=== PATIENT | male | born 1950 | race Caucasian/White ===

== ENCOUNTER 2019-10-23 21:06 | Emergency (ER) | payer OTHER, SELFPAY ==
[2019-10-23 21:19] VITALS: BP 139/76; PULSE 82; RESP 15; TEMP 36.8; O2SAT 100; BMI 28.7
--- NOTE | 2019-10-23 21:23 | ED_ITS ---
HPI - General Adult General Chief complaint: Extremity Injury, Upper Stated complaint: Fell on right arm below elbow Time Seen by Provider: 10/23/19 21:09 Source: patient Mode of arrival: Ambulatory Limitations: no limitations History of Present Illness HPI narrative: 68-year-old male here for evaluation of a laceration skin abrasions to his right elbow and forearm. States they occurred just prior to arrival when he was getting out of his hot tub. He states he slipped on the wet decking and fell. Did not hit his head. Reports no injuries except for the abrasions to his elbow. Covered with a bandage prior to arrival. Not on anticoagulation. Last tetanus shot was greater than 5 years ago Related Data Home Medications Medication Instructions Recorded Confirmed simvastatin [Zocor] 20 mg PO HS #0 02/20/17 Previous Rx's Medication Instructions Recorded metronidazole [Flagyl] 500 mg PO TID #42 tab 02/20/17 Allergies Allergy/AdvReac Type Severity Reaction Status Date / Time iodine [IODINE] Allergy Unknown Unverified 10/12/17 11:55 INGREDIENT: NDA - NO KNOWN Allergy Unknown Uncoded 10/12/17 11:55 DRUG ALLERGIES Review of Systems Constitutional Constitutional: Denies fever(s) and Denies headache(s) ENT Ears, Nose, Mouth, and Throat: Denies headache(s) Cardiovascular Cardiovascular: Denies chest pain and Denies dyspnea Respiratory Respiratory: Denies dyspnea Gastrointestinal Gastrointestinal: Denies abdominal pain, Denies nausea and Denies vomiting Musculoskeletal Musculoskeletal: Denies abnormal gait, Denies back pain, Denies myalgias and Denies arthralgias Integumentary/Breasts Comments: Laceration right elbow with abrasions to right forearm Neurologic Neurologic: Denies abnormal gait, Denies behavioral changes and Denies headache(s) Psychiatric Psychiatric: Denies behavioral changes Hematologic/Lymphatic Hematologic/Lymphatic: Denies easy bleeding and Denies easy bruising Patient History Medical History Healthy adult (Acute) Social History Smoking Status: Never smoker Exam Initial Vital Signs Initial Vital Signs: Vital Signs Temperature 98.3 F 10/23/19 21: Pulse Rate 82 10/23/19 21: Respiratory Rate 15 10/23/19 21:19 Blood Pressure 139/76 10/23/19 21:19 Pulse Oximetry 100 10/23/19 21:19 Const General: cooperative and comfortable Limitations: mental status not altered [facility] Head: atraumatic Resp Effort & Inspection: normal respiratory effort Cardio Rate: regular rate Skin Other: Patient with a irregular laceration to the right elbow. Also has 2 skin abrasions on the ulnar aspect of his right forearm distal to his elbow and proximal to his wrist. Extrem Other: Full range of motion right shoulder right elbow. Can pronate and supinate. Full range of motion of right wrist and right hand. Psych Appearance: grossly normal and well kempt Procedures Laceration Repair Laceration 1: Site: other (Right elbow) Side (If applicable): right Size (cm): 4 Description: stellate and irregular Depth: simple, single layer Local Anesthetic: lidocaine 1% and with epi Amount of anesthesia used (mL): 6 Pre-repair: irrigated extensively, deep structures intact and wound margins revised Skin layer closed with: nylon Size (cm): 4-0 Number of sutures: 12 Technique: simple, interrupted Course Orders Ordered: Discontinued Medications Bacitracin (Bacitracin) 3 applic TOP NOW ONE Stop: 10/23/19 21:24 Last Admin: 10/23/19 21:31 Dose: 3 applic Documented by: DORIS Diphtheria/Tetanus/Acell Pertussis (Adacel) 0.5 ml IM .ONCE ONE Stop: 10/23/19 21:24 Last Admin: 10/23/19 21:32 Dose: 0.5 ml Documented by: DORIS Lidocaine/Epinephrine (Xylocaine 1% W/Epi) 1 ml SUBCUT NOW ONE Stop: 10/23/19 21:24 Last Admin: 10/23/19 21:31 Dose: 1 ml Documented by: DORIS Vital Signs Vital signs: Vital Signs - 8 hr 10/23/19 21:19 Temperature 98.3 F Pulse Rate 82 Respiratory Rate 15 Blood Pressure 139/76 Pulse Oximetry 100 Medical Decision Making MDM Narrative Medical decision making narrative: No other injuries except for the skin lacerations and abrasions as described above. They were closed as described above. Had full range of motion of his elbow. I feel we could hold on radiologic studies for now. The right elbow laceration was very irregular. The edges were approximated as best as possible. He was placed in an Naldo bandage in order to remind him not to fully flex or extend his right elbow given the tension that could be placed on the stitches. He was given return precautions and follow-up instructions. He expressed understanding and agreement. Discharge Plan Departure Patient Disposition: Home Clinical Impression: Laceration, Abrasion of skin Fall Qualifiers: Encounter type: initial encounter Qualified Code(s): W19.XXXA - Unspecified fall, initial encounter Discharge Date/Time: 10/23/19 22:38 Instructions: DI for Laceration Repair, DI for Abrasion Activity Restrictions/Additional Instructions: The stitches do need to be removed in 7-10 days. After 24 hours you can shower like normal. You can keep antibiotic ointment over the areas. I recommend you use the Naldo bandage to remind you to not fully extend or flex her elbow. Contact your primary provider for follow-up. Return to the emergency department for any new or worsening symptoms Prescriptions: No Action simvastatin [Zocor] 20 MG tablet 20 mg PO HS Qty: 0 RF: 0 metronidazole [Flagyl] 500 MG tablet 500 mg PO TID Qty: 42 RF: 0 Referrals: Buddy Reid MD [Primary Care Provider] -
[2019-10-23] MEDS: LIDOCAINE 1% W/EPI 1 ML SUBCUT (21:31)
[2019-10-23] MEDS: BACITRACIN OINT 0.9 GM PCKT 3 APPLIC TOP (21:31)
[2019-10-23] MEDS: TET,DIPH,PERTUSS(ACELL),VAC/PF 0.5 ML SYRINGE IM (21:32)
== END 2019-10-23 22:38 | disposition home or self-care (01) ==
PROVIDERS: Emergency Provider Emergency Medicine; Family Provider Family Medicine; PCP Family Medicine
DX: S51.011A Laceration without foreign body of right elbow, initial encounter (principal); S50.311A Abrasion of right elbow, initial encounter; W18.30XA Fall on same level, unspecified, initial encounter; Z23 Encounter for immunization
CPT/HCPCS: 12002; 90471; 99283; 90715

== ENCOUNTER → 2020-05-14 16:42 | Outpatient (CLI) | payer OTHER, SELFPAY ==
--- NOTE | 2020-05-14 | DI.RAD.S_ITS ---
PROCEDURE: XR KNEE LT 3V INDICATIONS: left knee pain s/p fall TECHNIQUE: 3 views of the knee were acquired. COMPARISON: None. FINDINGS: Bones: No fractures or dislocations. No suspicious bony lesions. There is moderate knee joint space narrowing medially, associated with degenerative osteoarthritic change as the underlying cause. Moderately severe lateral facet patellofemoral joint osteoarthritis is seen and there also is mild subluxation of the patella laterally. Soft tissues: There is a small suprapatellar joint effusion. No suspicious soft tissue calcifications. IMPRESSION: Moderate to moderately severe knee joint osteoarthritis most pronounced at the lateral facet of the patellofemoral joint with an associated reactive knee joint effusion that is small and not associated with a loose body. Dictated by: Bill Love M.D. on 05/14/2020 at 17:45 Approved by: Bill Love M.D. on 05/14/2020 at 17:46
== END ==
PROVIDERS: Family Provider Family Medicine; PCP Family Medicine; Referring Provider Family Medicine; Visit Provider Family Medicine
DX: M25.562 Pain in left knee (principal); M17.12 Unilateral primary osteoarthritis, left knee; M25.462 Effusion, left knee
CPT/HCPCS: 73562

== ENCOUNTER → 2020-06-12 10:10 | Outpatient (CLI) | payer OTHER, SELFPAY ==
--- NOTE | 2020-06-12 | DI.RAD.S_ITS ---
PROCEDURE: XR CHEST 2V INDICATIONS: CHRONIC COUGH TECHNIQUE: 2 views of the chest were acquired. COMPARISON: [facility], CHEST 2 VIEW, 12/10/2009, 8:03. [facility], CHEST 2 VIEW, 11/25/2010, 7:53. [facility], CHEST 2 VIEW, 11/08/2011, 7:16. FINDINGS: Surgical changes and devices: None. Lungs and pleura: An incomplete inspiratory result is noted, causing a crowded appearance to the lung markings. No focal infiltrates are seen. No pneumothorax or significant pleural effusions are seen. Mediastinum: Mediastinal contours are normal. Heart size is normal. Bones and chest wall: No suspicious bony abnormalities. Age-appropriate bony degenerative changes are seen. Soft tissues appear unremarkable. IMPRESSION: Limited chest study, without an acute abnormality identified. Dictated by: Homero Sanchez M.D. on 06/12/2020 at 9:51 Approved by: Homero Sanchez M.D. on 06/12/2020 at 9:52
== END ==
PROVIDERS: Family Provider Family Medicine; PCP Family Medicine; Referring Provider Family Medicine; Visit Provider Family Medicine
DX: R05 Cough (principal)
CPT/HCPCS: 71046

== ENCOUNTER → 2020-06-19 12:33 | Outpatient (CLI) | payer OTHER, SELFPAY ==
--- NOTE | 2020-06-19 | DI.RAD.S_ITS ---
PROCEDURE: FL BARIUM SWALLOW INDICATIONS: Cough COMPARISON: [facility], CR, XR CHEST 2V, 06/12/2020, 10:16. FINDINGS: Function: There is normal esophageal peristalsis. Mild gastroesophageal reflux. There is normal transit of a calibrated barium tablet through the esophagus into the stomach. Morphology: There is a small hiatal hernia. There is no esophageal strictures, extrinsic mass effects, or diverticula. There is mild irregularity in the gastric cardia just distal to the GE junction. junction. IMPRESSION: 1. Mild gastroesophageal reflux. 2. A small hiatal hernia. 3. There is mild irregularity in the gastric cardia just beyond the gastroesophageal junction. Although the appearance could be caused by an artifact, upper endoscopy would be helpful for further evaluation. Dictated by: Clarence Sifuentes M.D. on 06/19/2020 at 13:31 Approved by: Clarence Sifuentes M.D. on 06/19/2020 at 13:35
== END ==
PROVIDERS: Family Provider Family Medicine; PCP Family Medicine; Referring Provider Family Medicine; Visit Provider Family Medicine
DX: R05 Cough (principal); K21.9 Gastro-esophageal reflux disease without esophagitis; K44.9 Diaphragmatic hernia without obstruction or gangrene
CPT/HCPCS: 74220

== ENCOUNTER 2021-02-07 18:27 | Inpatient (IN) | payer OTHER, MEDICARE, SELFPAY ==
[2021-02-07 18:45] VITALS: BP 139/88; PULSE 69; RESP 16; TEMP 36.5; O2SAT 96; BMI 29.5
--- NOTE | 2021-02-07 19:06 | DI.RAD.S_ITS ---
PROCEDURE: XR CHEST 1V INDICATIONS: fall off deck, right mid thoracic pain. TECHNIQUE: One view of the chest was acquired. COMPARISON: [facility], CR, XR CHEST 2V, 06/12/2020, 10:16. FINDINGS: Surgical changes and devices: None. Lungs and pleura: Increased opacification noted in the left lung base. Central vascular congestion. No pleural effusions or pneumothorax. Mediastinum: Mediastinal contours appear normal. Heart size is normal. Bones and chest wall: Possible 1.5 centimeter ossified intra-articular loose body noted in the right shoulder. No suspicious bony lesions. Overlying soft tissues appear unremarkable. IMPRESSION: 1. Increased opacification left lung base which could represent atelectasis, aspiration or pneumonia. 2. Central vascular congestion which could be due to fluid overload or CHF. Dictated by: Kandis Sierra MD, PhD on 02/07/2021 at 19:40 Approved by: Kandis Sierra MD, PhD on 02/07/2021 at 19:42
--- NOTE | 2021-02-07 19:06 | ED_ITS ---
HPI - Fall General Chief Complaint: Fall Stated Complaint: Fell Off Deck,Rt Ribs,Rt Arm,Head Injury Time Seen by Provider: 02/07/21 18:59 Source: patient Mode of arrival: Ambulatory Limitations: no limitations History of Present Illness HPI Narrative: This is a 70-year-old male who states he fell off a deck. James capellan was trying to pry a piece of wooden planking off his deck when it broke loose and there was something stopping him from falling off the deck and he fell about 4 ft onto the right side of his head, chest and arm. Patient states he has pain in his right back in the area of his ribs in the midthoracic region which he states feels similar to when he broke his ribs in the past. Patient states he did hit his head. He is not anticoagulated. He does not take a daily aspirin or other thinners. He denies any loss of consciousness. He states he has a mild headache, no vision changes, no nausea or vomiting. No neck pain. No lower back pain. Patient has some discomfort over his arm and some tingling over an area of superficial laceration. Patient states painful to take a deep breath. He denies any anterior chest pain. He denies any nausea or vomiting. He denies any bowel or bladder incontinence. He denies any tingling or numbness in his distal extremities. Patient states he takes Zocor daily. He has had a transverse process fracture and rib fracture remotely. He states these were treated conservatively. Patient denies any other surgeries besides appendectomy. He states he is allergic to IV contrast and his reaction was an episode of vomiting immediately after contrast was given. No tobacco, occasional alcohol. Patient denies any alcohol today. No illicit. Patient's primary care is Dr. Reid. Patient tetanus is up to date. Related Data Home Medications Medication Instructions Recorded Confirmed simvastatin 20 mg tablet (Zocor) 20 mg PO HS #0 02/20/17 Previous Rx's Medication Instructions Recorded metronidazole 500 mg tablet 500 mg PO TID #42 tab 02/20/17 (Flagyl) Allergies Allergy/AdvReac Type Severity Reaction Status Date / Time iodine [IODINE] Allergy Intermediate Vomiting Verified 02/07/21 18:52 Review of Systems Review of Systems ROS Unobtainable: All systems reviewed & are unremarkable except as noted in HPI and below Patient History Medical History (Updated 02/07/21 @ 20:15 by Amanda Keller DO) Healthy adult Social History household members: spouse Smoking Status: Former smoker Smoking Status: Never smoker alcohol intake frequency: 0-2 drinks per day Alcohol type: beer Substance Use Type: does not use Exam Narrative Exam Narrative: GEN: Patient appears in moderate distress. HEAD: No evidence of trauma for the small area of ecchymosis over the right forehead, no raccoon/Carrasco sign. NECK: Nontender, painless range of motion, trachea midline Negative Nexus criteria, there is no mid line tenderness, distracting injury, altered mental status, neuro deficit, recent EtOH. EYES: PERRLA, EOMI ENT: External inspection normal, trachea is midline, TM's are normal no hemotypanum, Nares are clear, no septal hematoma, no dental or oral injury, airway is normal and with normal occlusion, No bony tenderness RESP: Chest is nontender and has symmetric movement, no ecchymosis, breath sounds are normal no crackles, wheezes or rales CVS: Heart sounds are normal, no murmur noted, No JVD. ABG/GI: Nontender, soft, normal bowel sounds, no distention, no organomegaly, pelvic rock is negative NEURO: Oriented AOx3, neuro is grossly intact, sensation and motor is normal all 4 extremities moving, cranial nerves II through XII are intact, GCS is 15 PSYCH: Normal mood and affect SKIN: Intact, warm and dry, no crepitus and without decubitus BACK: No CVA tenderness, no vertebral tenderness, patient does have tenderness over the midthoracic region at T9/L1 region. No flail chest. No ecchymosis. No step-off's, no crepitus EXT: Atraumatic except for a 5 cm superficial laceration over the right forearm, hips are nontender, no pedal edema, normal color and temperature, normal range of motion of extremities with normal tendon exam, 2+ pulses in all four extremities Initial Vital Signs Initial Vital Signs: Vital Signs Temperature 97.7 F 02/07/21 18:45 Pulse Rate 69 02/07/21 18:45 Respiratory Rate 16 02/07/21 18:45 Blood Pressure 139/88 02/07/21 18:45 Pulse Oximetry 96 02/07/21 18:45 Scores GCS [place] coma scale eye opening: Spontaneous [place] coma scale verbal response: Orientated [place] coma scale motor response: Obey commands [place] coma scale total score: 15 Course Orders Ordered: ED Orders 02/07/21 20:30 COVID19 - ADMIT ([employer] swab/PCR) Stat 02/07/21 21:04 Partial Thromboplastin Time Stat Prothrombin Time INR Stat 02/07/21 21:21 CT cervical spine wo con Stat CT head/brain wo con Stat 02/07/21 21:24 Education, smoking cessation ONGOING 02/08/21 04:43 Complete Blood Count AUTO DIFF DAILY 02/08/21 06:30 XR chest 1V DAILY Acetaminophen (Acetaminophen 325 Mg Tablet) 650 mg PO Q6HR PRN PRN Reason: Fever/Mild Pain (1-3) Hydrocodone Bitart/Acetaminophen (Hydrocodone/Acet 5/325 Tablet) 2 tab PO Q4HR PRN PRN Reason: Pain, Severe (7-10) Last Admin: 02/08/21 00:48 Dose: 2 tab Documented by: JAILENE Enoxaparin Sodium (Enoxaparin 40 Mg/0.4 Ml Syringe) 40 mg SUBCUT DAILY MESFIN Sodium Chloride (Normal Saline 0.9%) 1,000 mls @ 150 mls/hr IV CONT MESFIN Last Admin: 02/07/21 20:32 Dose: 150 mls/hr Documented by: DORENE Dextrose/Sodium Chloride (Dextrose 5%-0.45% Ns) 1,000 mls @ 100 mls/hr IV CONT MESFIN Last Admin: 02/08/21 00:51 Dose: 100 mls/hr Documented by: JAILENE Naloxone HCl (Naloxone 0.4 Mg/Ml Vial) 0.2 mg IV Q2MIN PRN PRN Reason: Opiate Reversal Ondansetron HCl (Ondansetron 4 Mg/2 Ml Inj) 4 mg IV Q6HR PRN PRN Reason: Nausea And Vomiting Last Admin: 02/08/21 02:07 Dose: 4 mg Documented by: Admin: 02/07/21 21:51 Dose: 4 mg Documented by: DORENE Discontinued Medications Morphine Sulfate (Morphine 4 Mg/Ml Inj) 4 mg IV NOW ONE Stop: 02/07/21 19:07 Last Admin: 02/07/21 20:06 Dose: 4 mg Documented by: DORENE Morphine Sulfate (Morphine 4 Mg/Ml Inj) 4 mg IV NOW ONE Stop: 02/07/21 21:36 Last Admin: 02/07/21 21:39 Dose: 4 mg Documented by: DORENE Consultations Consultation #1: Dr. Tadeo, patient is noticed to have rib fractures 3 t hrough 11 with a trace right hemothorax. Discussed with Dr. Tadeo who requests head CT and C-spine. If these are negative she accepts for admission and will put orders in. Dr. Tadeo defers any call back if negative CT imaging. A mild leukocytosis at 14 and AST ALT at 266 and ALT at 221 were reviewed. Patient is non-tender on abdominal exam. Vital Signs Vital signs: Vital Signs - 8 hr 02/07/21 21:28 Pulse Rate 73 Respiratory Rate 16 Blood Pressure 138/83 Pulse Oximetry 95 MDM - Fall Lab Data Result diagrams: 02/07/21 20:05 02/07/21 20:05 Labs: Lab Results 02/07/21 02/07/21 02/07/21 Range/Units 20:05 20:05 20:05 WBC 14.3 H (4.5-11.0) X10^3/uL RBC 4.92 (4.5-5.9) X10^6/uL Hgb 15.9 (13.5-17.5) g/dL Hct 46.6 (41-53) % MCV 94.7 (80-100) fL MCH 32.3 (26-34) PG MCHC 34.2 (30-36) % RDW 13.4 (11.6-14.8) % Plt Count 202 (150-400) X10^3/uL Neut % (Auto) 83.2 H (50-75) % Lymph % (Auto) 7.3 L (25-40) % Charlton % (Auto) 8.2 (3-14) % Eos % (Auto) 0.8 L (2-4) % Baso % (Auto) 0.5 (0-2) % Neut # (Auto) 77295 H (8393-6843) /uL Lymph # (Auto) 1000 L (3432-6789) /uL Charlton # (Auto) 1200 H (0-900) /uL Eos # (Auto) 100 (0-450) /uL Baso # (Auto) 100 (0-100) /uL PT (10.1-12.7) SECONDS INR (0.9-1.3) APTT (26.4-36.2) SECONDS Sodium 140 (137-145) mmol/L Potassium 3.8 (3.4-5.1) mmol/L Chloride 106 (98-107) mmol/L Carbon Dioxide 27 (22-32) mmol/L BUN 21 H (9-20) mg/dL Creatinine 1.01 (0.66-1.25) mg/dL Estimated GFR > 60.0 (>60) mL/min BUN/Creatinine Ratio 20.8 (6-22) Glucose 136 H (80-110) mg/dL Calcium 9.3 (8.4-10.2) mg/dL Total Bilirubin 0.5 (0.2-1.3) mg/dL AST 266 H (17-59) IU/L ALT 221 H (<50) IU/L Alkaline Phosphatase 83 (38-126) U/L Total Protein 7.4 (6.3-8.2) g/dL Albumin 4.5 (3.5-5.0) g/dL Globulin 2.9 (1.7-4.1) g/dL Albumin/Globulin Ratio 1.6 (1.0-2.8) Lipase 133 (23-300) U/L Ethyl Alcohol < 10 ( - 10) mg/dL SARS-CoV-2 (PCR) (Negative) Blood Type B Negative Antibody Screen Negative 02/07/21 02/07/21 Range/Units 20:30 21:04 WBC (4.5-11.0) X10^3/uL RBC (4.5-5.9) X10^6/uL Hgb (13.5-17.5) g/dL Hct (41-53) % MCV (80-100) fL MCH (26-34) PG MCHC (30-36) % RDW (11.6-14.8) % Plt Count (150-400) X10^3/uL Neut % (Auto) (50-75) % Lymph % (Auto) (25-40) % Charlton % (Auto) (3-14) % Eos % (Auto) (2-4) % Baso % (Auto) (0-2) % Neut # (Auto) (5254-3792) /uL Lymph # (Auto) (6952-4465) /uL Charlton # (Auto) (0-900) /uL Eos # (Auto) (0-450) /uL Baso # (Auto) (0-100) /uL PT 11.7 (10.1-12.7) SECONDS INR 1.0 (0.9-1.3) APTT 29 (26.4-36.2) SECONDS Sodium (137-145) mmol/L Potassium (3.4-5.1) mmol/L Chloride (98-107) mmol/L Carbon Dioxide (22-32) mmol/L BUN (9-20) mg/dL Creatinine (0.66-1.25) mg/dL Estimated GFR (>60) mL/min BUN/Creatinine Ratio (6-22) Glucose (80-110) mg/dL Calcium (8.4-10.2) mg/dL Total Bilirubin (0.2-1.3) mg/dL AST (17-59) IU/L ALT (<50) IU/L Alkaline Phosphatase (38-126) U/L Total Protein (6.3-8.2) g/dL Albumin (3.5-5.0) g/dL Globulin (1.7-4.1) g/dL Albumin/Globulin Ratio (1.0-2.8) Lipase (23-300) U/L Ethyl Alcohol ( - 10) mg/dL SARS-CoV-2 (PCR) Negative (Negative) Blood Type Antibody Screen Imaging Data Tspine CT: Radiologist's Impression: [address] [id number] Scan ReportSigned Patient: Kevan Armstrong LMR#: [id number]: 3Acct:[id number]/Sex: 70 / MDate of Service: 02/07/21Loc: EDAccession Number: [id number] Procedure: CT thoracic spine wo con Ordering Provider: Amanda Keller D.O. PROCEDURE: CT THORACIC SPINE WO CON INDICATIONS: fall, right posterior rib pain along. TECHNIQUE: Noncontrast 3 mm thick sections acquired through the region of interest in the thoracic spine. Sagittal and coronal reformats were then constructed. For radiation dose reduction, the following was used: automated exposure control. COMPARISON: [facility], CR, XR CHEST 1V, 02/07/2021, 19:22. FINDINGS: Image quality: Excellent. Bones: Right posterior 3rd through 11th rib fractures. There is normal overall bony alignment. No acute vertebral body compression fractures. No suspicious scle rotic or lytic bony lesions. Central spinal canal is of normal overall caliber. Mild mid and lower thoracic spine degenerative disc changes. Schmorl's node noted in the superior endplate of the T2 vertebral body. Soft tissues: No paravertebral masses or hematomas. Atelectasis noted in the dependent portion lungs bilaterally. Trace right-sided hemothorax. No pneumothorax. Small hiatal hernia. IMPRESSION: 1. Right 3rd through 11th rib fractures. 2. Trace right-sided hemothorax. No pneumothorax. Dictated by: Kandis Sierra MD, PhD on 02/07/2021 at 19:43 Approved by: Kandis Sierra MD, PhD on 02/07/2021 at 19:[address]: Radiologist's Impression: [address] [id number] Scan ReportSigned Patient: Kevan Armstrong LMR#: [id number]: [id number]:[id number]/Sex: 70 / MDate of Service: 02/07/21Loc: EDAccession Number: [id number] Procedure: CT lumbar spine wo con Ordering Provider: Amanda Keller D.O. PROCEDURE: CT LUMBAR SPINE WO CON INDICATIONS: right posterior rib/back pain TECHNIQUE: Noncontrast 3 mm thick sections acquired from the T12 level to the sacrum. Sagittal and coronal reformats were constructed. For radiation dose reduction, the following was used: automated exposure control. COMPARISON: None. FINDINGS: Image quality: Excellent. Bones: There is normal bony alignment. No acute vertebral body compression fractures. Posterior right 11th rib fracture. No suspicious lytic or blastic bony lesions. No pars defects. Spine degenerative disc disease and facet arthropathy. Soft tissues: No retroperitoneal masses or hematomas. Visualized aorta is normal in caliber. IMPRESSION: 1. No lumbar spine fracture. No lumbar spine acute osseous lesion. If symptoms and/or clinical suspicion for pathology persists, evaluation with MRI should be considered for further assessment. 2. Right 11th rib fracture. Dictated by: Kandis Sierra MD, PhD on 02/07/2021 at 19:59 Approved by: Kandis Sierra MD, PhD on 02/07/2021 at 20:02 CT scan - head: Radiologist's Impression: No acute intracranial abnormalities. Diffuse age-related volume loss and nonspecific deep white matter changes likely repres enting chronic microvascular ischemic changes. CT - cervical spine: Radiologist's Impression: Acute right posterior 3rd 4th rib fractures. Diffuse spondylosis with multilevel facet on come COVID vertebral hypertrophy and associated neuroforaminal narrowing. Slight degenerative anterolisthesis of C5 on C6 ECG Data Interpretation: Sinus rhythm with sinus arrhythmia rate of 70 5p are 168 QRS of 94 and QTC of 410. No acute ST elevation or depression. MDM Narrative Medical decision making narrative: This is a 70-year-old male who comes to the emergency department after 4 ft fall off of his deck. Patient was removing a deck planking when as he was using a crowbar they gave way and he fell forward onto the ground on his right side. Patient does have a small bruise on his right forehead. Patient has right thoracic tenderness posteriorly. He is nontender over the spine itself but his pain is quite close so CT imaging of thoracic and lumbar spine was ordered. Patient has been hemodynamically stable. He was found have 3 through 11 rib fractures with trace hemothorax. Patient also had chest x-ray included. Patient's labs show a leukocytosis of 14 and a bump in his AST/ALT. These were discussed with Dr. Tadeo who does request a head CT and C-spine which are both negative and patient was accepted for admission. Patient has been tolerating pain with morphine and Zofran as needed. His only current medical has tree is that he takes Zocor daily. He has an allergy to iodine which causes vomiting. And is not on any anticoagulants including aspirin or other antiplatelet medications. Discharge Plan Departure Patient Disposition: Admitted As Inpatient Clinical Impression: Fracture of ribs, multiple, closed, Hemothorax on right Admit Date/Time: 02/07/21 22:45 Admit Provider: Dedra Tadeo
--- NOTE | 2021-02-07 19:13 | DI.CT.S_ITS ---
PROCEDURE: CT LUMBAR SPINE WO CON INDICATIONS: right posterior rib/back pain TECHNIQUE: Noncontrast 3 mm thick sections acquired from the T12 level to the sacrum. Sagittal and coronal reformats were constructed. For radiation dose reduction, the following was used: automated exposure control. COMPARISON: None. FINDINGS: Image quality: Excellent. Bones: There is normal bony alignment. No acute vertebral body compression fractures. Posterior right 11th rib fracture. No suspicious lytic or blastic bony lesions. No pars defects. Spine degenerative disc disease and facet arthropathy. Soft tissues: No retroperitoneal masses or hematomas. Visualized aorta is normal in caliber. IMPRESSION: 1. No lumbar spine fracture. No lumbar spine acute osseous lesion. If symptoms and/or clinical suspicion for pathology persists, evaluation with MRI should be considered for further assessment. 2. Right 11th rib fracture. Dictated by: Kandis Sierra MD, PhD on 02/07/2021 at 19:59 Approved by: Kandis Sierra MD, PhD on 02/07/2021 at 20:02
--- NOTE | 2021-02-07 19:13 | DI.CT.S_ITS ---
PROCEDURE: CT THORACIC SPINE WO CON INDICATIONS: fall, right posterior rib pain along. TECHNIQUE: Noncontrast 3 mm thick sections acquired through the region of interest in the thoracic spine. Sagittal and coronal reformats were then constructed. For radiation dose reduction, the following was used: automated exposure control. COMPARISON: [facility], CR, XR CHEST 1V, 02/07/2021, 19:22. FINDINGS: Image quality: Excellent. Bones: Right posterior 3rd through 11th rib fractures. There is normal overall bony alignment. No acute vertebral body compression fractures. No suspicious sclerotic or lytic bony lesions. Central spinal canal is of normal overall caliber. Mild mid and lower thoracic spine degenerative disc changes. Schmorl's node noted in the superior endplate of the T2 vertebral body. Soft tissues: No paravertebral masses or hematomas. Atelectasis noted in the dependent portion lungs bilaterally. Trace right-sided hemothorax. No pneumothorax. Small hiatal hernia. IMPRESSION: 1. Right 3rd through 11th rib fractures. 2. Trace right-sided hemothorax. No pneumothorax. Dictated by: Kandis Sierra MD, PhD on 02/07/2021 at 19:43 Approved by: Kandis Sierra MD, PhD on 02/07/2021 at 19:47
[2021-02-07] MEDS: MORPHINE 4 MG/ML INJ IV ×2 (20:06→21:39)
[2021-02-07 20:10] VITALS: BP 122/79; PULSE 73; RESP 14; O2SAT 97
[2021-02-07 20:30] VITALS: BP 110/78; PULSE 74; RESP 18; O2SAT 94
[2021-02-07] MEDS: SODIUM CHLORIDE 0.9% 1,000 ML 150 ML IV (20:32)
[2021-02-07 20:45] LABS: Add Manual Diff / Slide Review NO; Basophils Absolute Auto 100 /uL (0-100); Basophils Percent Auto 0.5 % (0-2); Eosinophils Absolute Auto 100 /uL (0-450); Eosinophils Percent Auto 0.8 % (2-4); Hematocrit 46.6 % (41-53); Hemoglobin 15.9 g/dL (13.5-17.5); Lymphocytes Absolute Auto 1000 /uL (1100-4500); Lymphocytes Percent Auto 7.3 % (25-40); Mean Corpuscular HGB Conc 34.2 % (30-36); Mean Corpuscular Hemoglobin 32.3 PG (26-34); Mean Corpuscular Volume 94.7 fL (80-100); Monocytes Absolute Auto 1200 /uL (0-900); Monocytes Percent Auto 8.2 % (3-14); Neutrophils Absolute Auto 11900 /uL (1500-7000); Neutrophils Percent Auto 83.2 % (50-75); Platelet Count 202 X10^3/uL (150-400); Red Blood Cell Count 4.92 X10^6/uL (4.5-5.9); Red Cell Distribution Width 13.4 % (11.6-14.8); White Blood Cell Count 14.3 X10^3/uL (4.5-11.0)
[2021-02-07 20:50] LABS: Alanine Aminotransferase 221 IU/L (<50); Albumin 4.5 g/dL (3.5-5.0); Albumin Globulin Ratio 1.6 (1.0-2.8); Alkaline Phosphatase 83 U/L (38-126); Aspartate Aminotransferase 266 IU/L (17-59); BUN Creatinine Ratio 20.8 (6-22); Bilirubin Total 0.5 mg/dL (0.2-1.3); Blood Urea Nitrogen 21 mg/dL (9-20); Calcium 9.3 mg/dL (8.4-10.2); Carbon Dioxide 27 mmol/L (22-32); Chloride 106 mmol/L (98-107); Estimated Glomerular Filt Rate > 60.0 mL/min (>60); Ethanol (ETOH) < 10 mg/dL; Globulin 2.9 g/dL (1.7-4.1); Glucose 136 mg/dL (80-110); HEMOLYSIS 48 (0-50); Lipase 133 U/L (23-300); Potassium 3.8 mmol/L (3.4-5.1); Sodium 140 mmol/L (137-145); Total Protein 7.4 g/dL (6.3-8.2)
--- NOTE | 2021-02-07 21:21 | DI.CT.S_ITS ---
PROCEDURE: CT HEAD/BRAIN WO CON INDICATIONS: fall, did hit forehead. TECHNIQUE: Noncontrast 4.5 mm thick angled axial sections acquired from the foramen magnum to the vertex, with coronal and sagittal reformats. For radiation dose reduction, the following was used: automated exposure control, adjustment of mA and/or kV according to patient size. COMPARISON: None. FINDINGS: Image quality: Excellent. CSF spaces: Basal cisterns are patent. No extra-axial fluid collections. The ventricles are symmetric in size and shape. Brain: No intracranial bleeds or masses. There is cerebral volume loss for age, with resultant ventricular and sulcal prominence. There are mild periventricular and deep white matter chronic small vessel ischemic changes. There is intracranial internal carotid artery atherosclerosis. Skull and face: Calvarium and visualized facial bones appear intact, without suspicious lesions. Sinuses: Visualized sinuses and mastoids are clear. IMPRESSION: 1. No CT evidence of acute intracranial process. 2. Age-appropriate exam. 3. No fractures. 4. Concordant with preliminary report. Dictated by: Marielena Stern M.D. on 02/08/2021 at 7:14 Approved by: Marielena Stern M.D. on 02/08/2021 at 7:16
--- NOTE | 2021-02-07 21:21 | DI.CT.S_ITS ---
PROCEDURE: CT CERVICAL SPINE WO CON INDICATIONS: fall, did hit forehead. TECHNIQUE: Noncontrast 3 mm thick sections acquired from the skull base to the T4 level. Sagittal and coronal reformats were then constructed. For radiation dose reduction, the following was used: automated exposure control, adjustment of mA and/or kV according to patient size. COMPARISON: None. FINDINGS: Image quality: Excellent. Bones: No cervical spine fractures or dislocations. Degenerative change at the atlantodental interval. Facet hypertrophy bilaterally from C3 through C6. Severe facet arthropathy at C7-T1. Disc height loss and endplate spurring at C6-7. Degenerative disc and Schmorl's node formation incidentally seen at the T1-2 level. Visualized superior ribs are intact. Soft tissues: Prevertebral soft tissues are normal in thickness. Minimally displaced right posterior 3rd and 4th rib fractures. No paravertebral hematomas. No apical pneumothoraces. IMPRESSION: 1. No acute cervical spine fracture. 2. Acute 3rd and 4th posterior right rib fractures. 3. Degenerative changes in the cervical spine as described. 4. Concordant with preliminary report. Dictated by: Marielena Stern M.D. on 02/08/2021 at 7:16 Approved by: Marielena Stern M.D. on 02/08/2021 at 7:20
[2021-02-07 21:25] LABS: COVID19 - ADMIT (NP swab/PCR) Negative (Negative)
[2021-02-07 21:27] LABS: Prothrombin Time 11.7 SECONDS (10.1-12.7)
[2021-02-07 21:28] VITALS: BP 138/83; PULSE 73; RESP 16; O2SAT 95
[2021-02-07 21:30] LABS: PTT Partial Thromboplastin Tim 29 SECONDS (26.4-36.2)
[2021-02-07] MEDS: ONDANSETRON 4 MG/2 ML INJ IV (21:51)
[2021-02-07 23:32] VITALS: BMI 29.5
[2021-02-08] VITALS (12 sets, daily range): BP systolic 106–140; BP diastolic 58–92; PULSE 63–84; RESP 14–20; TEMP 36.2–36.8; O2SAT 91–97
[2021-02-08] MEDS: HYDROCODONE/ACET 5/325 TABLET 2 TAB PO ×5 (00:48→21:57)
[2021-02-08] MEDS: DEXTROSE 5%-0.45% NS 1,000 ML 100 ML IV (00:51)
[2021-02-08] MEDS: ONDANSETRON 4 MG/2 ML INJ IV (02:07)
[2021-02-08 05:15] LABS: Add Manual Diff / Slide Review NO; Basophils Absolute Auto 0 /uL (0-100); Basophils Percent Auto 0.2 % (0-2); Eosinophils Absolute Auto 0 /uL (0-450); Hematocrit 41.4 % (41-53); Hemoglobin 14.3 g/dL (13.5-17.5); Lymphocytes Absolute Auto 500 /uL (1100-4500); Mean Corpuscular HGB Conc 34.7 % (30-36); Mean Corpuscular Hemoglobin 32.8 PG (26-34); Mean Corpuscular Volume 94.5 fL (80-100); Monocytes Absolute Auto 900 /uL (0-900); Monocytes Percent Auto 8.5 % (3-14); Neutrophils Absolute Auto 8800 /uL (1500-7000); Neutrophils Percent Auto 86.3 % (50-75); Platelet Count 184 X10^3/uL (150-400); Red Blood Cell Count 4.38 X10^6/uL (4.5-5.9); Red Cell Distribution Width 13.1 % (11.6-14.8); White Blood Cell Count 10.2 X10^3/uL (4.5-11.0)
--- NOTE | 2021-02-08 06:30 | DI.RAD.S_ITS ---
PROCEDURE: XR CHEST 1V INDICATIONS: ptx TECHNIQUE: One view of the chest was acquired. COMPARISON: [facility], CT, CT THORACIC SPINE WO CON, 02/07/2021, 19:24. [facility], CR, XR CHEST 1V, 02/07/2021, 19:22. FINDINGS: Surgical changes and devices: None. Lungs and pleura: No pneumothorax is seen. No significant pleural bone. Low lung volumes are noted. This causes a crowded appearance to the lung markings and limits evaluation. Mediastinum: Mediastinal contours appear normal. Heart size is normal. Bones and chest wall: No suspicious bony lesions. Age-appropriate bony degenerative changes are seen. The patient's known right posterior rib fractures are not well seen on the plain. Overlying soft tissues appear unremarkable. IMPRESSION: No pneumothorax is seen. The rib fractures that are well seen on CT are not well seen by plain film. Dictated by: Homero Sanchez M.D. on 02/08/2021 at 8:18 Approved by: Homero Sanchez M.D. on 02/08/2021 at 8:19
[2021-02-08] MEDS: ENOXAPARIN 40 MG/0.4 ML SYRINGE SUBCUT (08:32)
--- NOTE | 2021-02-08 10:25 | PC.NURSE ---
Addendum entered by Addie Burton R.N. 02/08/21 12:50: Patient medicated earlier with 2 vicodin. This has been helpful for patients pain control. He is going to have physical therapy and then may go home later this afternoon. Original Note: Patient is doing well this morning. He is lying down supine and is comfortable after given 2 Vicodin this morning at 0630. He has a skin tear to his r.forearm that he obtained when he fell down last evening. No stitches or steri strips, area is wrapped with kurlex and intact with medium sized dried blood stain. No bruising noted to r.side of torso from where rib fx are. He has a supportive and is talking to the now.
--- NOTE | 2021-02-08 10:50 | CM.DANOTE ---
Addendum entered by Amy Puentes LPN 02/08/21 14:34: Dr. Tadeo was just here and has said that pt can go after he is cleared by RT and PT. RT is seeing pt now but at this time looks like no supplemental oxygen is needed. PT Graciela is recommending HH. Met with pt and his in followup. Agency choice list discussed and with use of Medicare A for the HH service. Decision: [facility]. Paoal is given the referral and expects to have pt seen before by Sunday 02/[address] Tadeo did not sign a Face/Face document. Have called her now and explained need. She agrees to be here in 10 minutes and will complete the needed document. HH RN/PT/OT are ordered. [facility] brochure is given to pt's . Original Note: Discharge Planning/Care Management DCP: assessment: case received, EMR reviewed and met with pt and his Kristine. Introduced self and role. Pt is a 70 year old male who admitted to care of [facility]: Mckayla Tadeo last night PCP: Jeremi Reid Admission status: INPT: confirmed by [facility] CORTEZ Avilez Payer: Bogdan and Medicare A (not noted on face sheet: pt confirms same and family will bring his card in today. Have alerted [facility] and will fax copy of card to them upon receipt. Will also place to [facility] folder for scan to EMR) Pt has admitted after a fall off deck while working to remove a deck plank. Hit head, fractured multiple ribs 3-11 and trace right sided hemothorax. Pt's PCP is here doing rounds and stopped in to see pt as a courtesy visit. Will await Dr. Tadeo to see about POC going forward. DCP team will follow for d/c issues and options as these become clearer. Advanced directive, confirm from FAMILY Start: 02/08/21 01:01 Freq: Q24H Status: Active Protocol: Document 02/08/21 01:01 ROBYN (Rec: 02/08/21 03:36 ROBNY [id number]) Advance Directive, confirm on record Time 01:00 Person contacted Copy received No CM Discharge Assessment Start: 02/08/21 10:49 Freq: Status: Active Protocol: Document 02/08/21 10:49 ITV (Rec: 02/08/21 10:50 ITV [id number]) Discharge Planning Assessment Advance Directives? Yes Advance Directives on File Yes History Provided By Patient,Family Member,Medical Record Prior Living Arrangements House Household Members spouse Comment Kristine Independent with ADL's Yes Is patient alert and oriented? Yes
--- NOTE | 2021-02-08 12:40 | PM.HP.1 ---
History of Present Illness History of Present Illness Date Patient Seen: 02/08/21 Date of Onset of Symptoms: 02/07/21 Chief complaint: Fell Off Deck,Rt Ribs,Rt Arm,Head Injury Narrative: fall from deck. Right trace hemothorax on CT Right rib fractures (3-11) [facility] Right arm laceration Was working on his deck prying a board loose with crowbar. Fell backwards when board gave way. Doesn't recall all details of event. C/O pain with deep breath and right sided chest wall pain. Pain in right arm. ED workup shows right ribs 3-11 fracture with trace hemothorax. No pnuemothorax. CXR today is stable as is Hct. No signs of concussive symptoms. Head, Neck and Thorax with no acute injury. Patient History Medical History Healthy adult Family & Social History Social History: household members spouse Prior Living Arrangements House Safety & Behavioral: Feels Safe in Current Yes Environment Been Physically Hurt or No Threatened By a Person Suicidal Ideation Description None Tobacco & Substance use: Smoking Status Former smoker alcohol intake frequency 0-2 drinks per day Substance Use Type does not use Meds Home Medications and Allergies Home Medications Medication Instructions Recorded Confirmed Type metronidazole 500 mg tablet 500 mg PO TID #42 tab 02/20/17 Rx (Flagyl) simvastatin 20 mg tablet (Zocor) 20 mg PO HS #0 02/20/17 History acetaminophen 325 mg tablet 650 mg PO Q6HR PRN #30 tab 02/08/21 Rx hydrocodone 5 mg-acetaminophen 325 2 tab PO Q4HR PRN #40 tab 02/08/21 Rx mg tablet Allergies Allergy/AdvReac Type Severity Reaction Status Date / Time iodine [IODINE] Allergy Intermediate Vomiting Verified 02/07/21 18:52 Exam Vital Signs (past 8 hours): - 02/08/21 05:00 02/08/21 07:12 02/08/21 11:36 Temperature 97.2 F L 97.9 F Pulse Rate 70 66 Respiratory Rate 18 16 Blood Pressure 117/74 106/73 Pulse Oximetry 97 97 97 Oxygen Delivery Method Room Air Oxygen Flow Rate 0 Const General: cooperative and healthy appearing Nutritional Appearance: average body habitus Orientation: alert and oriented x3 HENMT Head: normocephalic and abrasion (right forehead, no hematoma) Eyes Conjunctivae: conjunctivae normal Sclera: sclerae normal Neck Neck: trachea midline Chest Chest: normal inspection of the chest Resp Effort & Inspection: normal respiratory effort and able to speak in complete sentences Cardio Rate: regular rate Rhythm: regular rhythm GI Inspection: normal to inspection Palpation: soft Skin General: no rashes or lesions noted Other: right arm wound dressing is dry Neuro General: patient alert and patient oriented x3 Extrem General: normal to inspection and full ROM Psych Appearance: grossly normal Attitude: cooperative Judgment: judgment good Objective Labs Result Diagrams: 02/08/21 04:43 02/07/21 20:05 Labs: Laboratory Results - last 24 hr 02/07/21 02/07/21 02/07/21 20:05 20:05 20:05 WBC 14.3 H RBC 4.92 Hgb 15.9 Hct 46.6 MCV 94.7 MCH 32.3 MCHC 34.2 RDW 13.4 Plt Count 202 Neut % (Auto) 83.2 H Lymph % (Auto) 7.3 L [place] % (Auto) 8.2 Eos % (Auto) 0.8 L Baso % (Auto) 0.5 Neut # (Auto) 25317 H Lymph # (Auto) 1000 L [place] # (Auto) 1200 H Eos # (Auto) 100 Baso # (Auto) 100 PT INR APTT Sodium 140 Potassium 3.8 Chloride 106 Carbon Dioxide 27 BUN 21 H Creatinine 1.01 Estimated GFR > 60.0 BUN/Creatinine Ratio 20.8 Glucose 136 H Calcium 9.3 Total Bilirubin 0.5 AST 266 H ALT 221 H Alkaline Phosphatase 83 Total Protein 7.4 Albumin 4.5 Globulin 2.9 Albumin/Globulin Ratio 1.6 Lipase 133 Ethyl Alcohol < 10 SARS-CoV-2 (PCR) Blood Type B Negative Antibody Screen Negative 02/07/21 02/07/21 02/08/21 20:30 21:04 04:43 WBC 10.2 RBC 4.38 L Hgb 14.3 Hct 41.4 MCV 94.5 MCH 32.8 MCHC 34.7 RDW 13.1 Plt Count 184 Neut % (Auto) 86.3 H Lymph % (Auto) 5.0 L [place] % (Auto) 8.5 Eos % (Auto) 0.0 L Baso % (Auto) 0.2 Neut # (Auto) 8800 H Lymph # (Auto) 500 L [place] # (Auto) 900 Eos # (Auto) 0 Baso # (Auto) 0 PT 11.7 INR 1.0 APTT 29 Sodium Potassium Chloride Carbon Dioxide BUN Creatinine Estimated GFR BUN/Creatinine Ratio Glucose Calcium Total Bilirubin AST ALT Alkaline Phosphatase Total Protein Albumin Globulin Albumin/Globulin Ratio Lipase Ethyl Alcohol SARS-CoV-2 (PCR) Negative Blood Type Antibody Screen Assessment & Plan Assessment & Plan narrative: Fall from deck with right arm laceration, right rib fractures 3-11 and trace hemothorax. Plan: RT and PT to evaluate and treat. Once done, patient can go home with no heavy lifting or straining for 4 weeks. Hydrocodone at night and tylenol during the day COVID-19 COVID-19 status: Negative Time Spent With Patient Time with patient: Greater than 35 minutes Quality VTE Deep Vein Thrombosis/Pulmonary Embolism Present on Admission: No
--- NOTE | 2021-02-08 14:21 | PT.IIE ---
Medical History (Last Reviewed 02/08/21 @ 12:42 by Dedra Tadeo MD) Healthy adult Physical Therapy Inpatient Evaluation/Re-Eval M1 PT/OT-IP Prior Functional Status Start: 02/08/21 13:25 Freq: NEEDED Status: Active Protocol: Document 02/08/21 14:21 AW (Rec: 02/08/21 15:00 AW [id number]) Medical Review Prior Functional Status Medical History Reviewed Yes Communication WNL. Pt is an effective verbal communicator. Mobility and Gait WNL. Pt is active and independent. He reports hiking spring [place]. Of note, he has fallen at least three times in the past one year but all appear to have been mechanical falls. Activities of Daily Living and IADL's Independent in all regards Social History Household Members spouse Living Arrangements House Number of Floors (Floors) Two Floors Number of Stairs To Enter/Railing? Home is wheelchair-accessible. It has a ramped entry and pt is able to stay on the main level if needed. 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 He was able to borrow a FWW and shower chair. He also has trekking poles he uses for hiking. 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 He lives with his , Kristine, who is available and able to assist. Their daughter is visiting until 02/20 and will also be able to provide assist. M2 PT-IP Current Condition Start: 02/08/21 13:25 Freq: NEEDED Status: Active Protocol: Document 02/08/21 14:21 AW (Rec: 02/08/21 15:00 AW [id number]) Physical Therapy Current Condition Current Condition Evaluation Date 02/08/21 Treatment Diagnosis R rib fx 3-11, R arm pain, impaired mobility and gait Onset Date 02/07/21 Precautions Other Precautions - falls - no heavy lifting or straining x [address] Tadeo M3 PT-IP Subjective Start: 02/08/21 13:25 Freq: NEEDED Status: Active Protocol: Document 08/08/21 14:21 AW (Rec: 02/08/21 15:00 AW [id number]) Subjective Physical Therapy Visit Type Type Initial Evaluation Visit Start Time 13:40 Visit Stop Time 14:21 Total Visit Minutes 41 Notes Pt's spouse was present throughout evaluation. Physical Therapy Visit Comments Patient Comments Pt is willing to mobilize with PT Patient Goals Return home with spouse/family support. Therapy Pain Assessment Pain When Pain Assessed During Mobility Pain Present Pain Present Pain Reported Location Right Ribs Intensity 5 Scale Used Numeric (0 - 10) Pain Management Techniques Modification of Treatment,Re- positioning,Timing of Activity with Medications M4 PT-IP Mobility and Gait Start: 02/08/21 13:25 Freq: NEEDED Status: Active Protocol: Document 02/08/21 14:21 AW (Rec: 02/08/21 15:00 AW [id number]) PT-Bed Mobility Assessment Rolling Type of Rolling Log Rolling,Roll to Left Level of Assist Minimal Assistance,1 Person Assistance Supine to Sit Supine to Sit Moderate Assistance,1 Person Assistance Sit to Supine Sit to Supine Minimal Assistance Scooting Scooting to Edge of Bed Contact Guard Assistance PT-Transfer Assessment Sit to and From Stand Sit to and from Stand Contact Guard Assistance,Use of Upper Extremities Equipment Transfer Assistive Device Gait Belt,Front Wheeled Walker Orthotic/Prosthetic Devices or Brace: No Transfers Transfer Destination Bed,Chair Transfer Technique ambulated with FWW Transfer Ability Level of Assist Contact Guard Assistance,Use of Upper Extremities Comments Mobility Comments Pt was lying in bed as PT arrived. SpO2 was 96% on 1L/ min NC. O2 was removed for room air trial during mobility . PT instructed in log roll technique for bed mobility and pt completed roll to left side min A x 1 and SL to sit mod A x 1. Instructed pt's spouse on [place]brook points of control for assisting with bed mobility. She understood and was able to teach back to support the pt at shoulder blades and pelvis as needed. Pt complained of increased pain with transition and was visibly SOB. SpO2 was 89-91%. Pt was educated to slow his respiratory rate; SpO2 rebounded to 92-93%. Pt stood from the bed CGA and used FWW to ambulate 75 feet SBA/CGA. On return to the room, pt sat on the chair with verbal cues for sequencing/safety and stood again CGA. He transferred back to the bed, needing min assist for BLE elevation during reverse log roll. SpO2 was 89-91%. Replaced O2 via NC and SpO2 recovered to 94% within one minute. Pt was left with call light and tray table in reach. Gait Assessment Gait Gait Assistance Required: Standby Assistance,Contact Guard Assist Distance (Feet) 75 Assistive Devices Assistive Device Gait Belt,Front Wheeled Walker Orthotic/Prosthetic Devices or Brace: No Gait Deviations General Gait Pattern Antalgic,Decreased Stride Length,Decreased Feet Clearance Factors Limiting Gait Function Factors Limiting Gait Function Limited Range of Motion,Pain PT-Balance Assessment Sitting Balance and Reactions Static Sitting Balance Ability Fair Dynamic Sitting Balance Ability Poor Standing Balance and Reactions Static Standing Balance Ability Fair Dynamic Standing Balance Ability Fair Device Used FWW M5 PT-IP Objective Assessments Start: 02/08/21 13:25 Freq: NEEDED Status: Active Protocol: Document 02/08/21 14:21 AW (Rec: 02/08/21 15:00 AW [id number]) Orientation Orientation/Cognition Level of Alertness Alert Orientation Name,Day of Week,Place, Situation Language Function Ability No Deficits Noted Safety Awareness Understands Safety Issues Memory Description No Deficits Noted Gross Range of Motion Upper Extremity ROM Assessment Within Functional Limits Lower Extremity ROM Assessment Within Functional Limits Strength Upper Extremity Strength Assessment Bilaterally Impaired Shoulder 4-/5 secondary to pain Lower Extremity Strength Assessment Within Functional Limits Comments Strength Comments Generally 5/5 except R hip flexion 4+/5 Sensation Assessment Sensation Gross Sensation WNL Muscle Tone Muscle Tone WNL Yes Other Assessments Other Other Assessments See mobility comments for SpO2 monitoring during activity. M6 PT-IP Treatment Start: 02/08/21 13:25 Freq: NEEDED Status: Active Protocol: Document 02/08/21 14:21 AW (Rec: 02/08/21 15:00 AW [id number]) Physical Therapy Treatment Education Education Provided Precautions,Safety Other Treatments Other Treatment Performed Educated pt and his on current level of assist required for safe mobility, breathing awareness, and energy conservation techniques . Also discussed equipment needs for home, recommending raised toilet seat with handles. M7 PT-IP Assessment and Plan Start: 02/08/21 13:25 Freq: NEEDED Status: Active Protocol: Document 02/08/21 14:21 AW (Rec: 02/08/21 15:00 AW [id number]) PT Summary Assessment and Plan Potential Rehabilitation Potential Good Status of Condition at Evaluation Evolving Summary Impairments Pain,ROM,Strength,Balance,Bed Mobility,Transfers,Gait Assessment Summary Kevan is an active 70 yo man seen for PT evaluation after fall from his deck which resulted in right-side rib fractures 3-11. He is independent in all regards at baseline. On evaluation, pt required min to mod assist for mobility with FWW. Pt's participated in caregiver training and will be able to assist him at home. Pt's mobility is significantly affected by pain. He will be safe to discharge home once medically cleared but would benefit from home health PT and OT to progress his independent mobility and self- care. Goals Bed Mobility Goal Standby Assistance Transfer Goal Independent,Front Wheeled Walker Gait Goal Independent,Front Wheel Walker Gait Distance 200 Other Goals - improve transfers and gait to IND with LRAD or no AD Days to Meet Goals 5 Frequency of Treatment Frequency Of Treatment Once a Day Treatment Plan Physical Therapy Treatment Plan Bed Mobility Training,Transfer Training,Gait Training, Therapeutic Exercise,Balance Retraining,Discharge Planning, Hot or Cold Pack Other Recommendations and Next Treatment breathing mechanics, mobility Focus as tolerated Precautions Other Precautions - falls - no heavy lifting or straining x [address] Tadeo Recommendations To Nursing Amount of Assist Needed 1 Person Assist Discharge Recommendations PT Discharge Recommendations Home with Assistance,Home Health Transportation Needs at Discharge Private Vehicle
--- NOTE | 2021-02-08 15:51 | PC.NURSE ---
RT came to walk with patient and assess oxygen saturation. They state he was 90-92% throughout the walk. Discussed with Dr. Tadeo and she said he can be discharged to home. Spoke with Kevan and his and patient would prefer to stay due to pain. Discussed with Dr. Tadeo again and was okay to have him stay another night. Informed coordinator that he will not be going home tonight.
--- NOTE | 2021-02-08 18:37 | PC.NURSE ---
Addendum entered by Monique Tian R.N. 02/08/21 22:07: Changed dressing on R forearm per patient and request. Tolerated well. Original Note: Urinalysis, POC order is showing on worklist. However, this was an ER order from 02/07/21 marked as STAT. This was not completed by ER. Discussed with coordinator and they state to complete this as it was an ER order.
[2021-02-08] MEDS: SODIUM CHLORIDE 0.9% FLUSH 10 ML IV (21:12)
[2021-02-09] VITALS (13 sets, daily range): BP systolic 109–137; BP diastolic 72–87; PULSE 63–73; RESP 16–18; TEMP 36.6–37.3; O2SAT 91–99
[2021-02-09] MEDS: HYDROCODONE/ACET 5/325 TABLET 2 TAB PO ×2 (02:50→07:58)
[2021-02-09] MEDS: ENOXAPARIN 40 MG/0.4 ML SYRINGE SUBCUT (07:58)
[2021-02-09] MEDS: SODIUM CHLORIDE 0.9% FLUSH 10 ML IV (07:59)
[2021-02-09] MEDS: ACETAMINOPHEN 325 MG TABLET 650 MG PO (08:57)
--- NOTE | 2021-02-09 09:10 | PC.NURSE ---
Addendum entered by Christiana Nielsen R.N. 02/09/21 15:08: Patient walked with PT in the halls. Up to chair and on room air at this time, 93-95%. Doing IS. Addendum entered by Christiana Nielsen R.N. 02/09/21 13:08: R forearm dressing changed after shower. Patient tolerated. Addendum entered by Christiana Nielsen R.N. 02/09/21 13:02: MD in to see patient this afternoon. Patient refused ordered Xray, educated patient on necessity and assisted into position. Ordered medications administered. Patient and educated on new medications and purpose. IV lasix administered with IV pump, patient encouraged to continue using the IS. Patients intermittent cough is increasing in nature, c/o pain with cough. reports patient has always had a dry cough, noted this is a bit wet in nature. Will continue to monitor and encourage IS. Call light in reach. Original Note: Patient a/o x 3, resting in bed with bedside. Patient c/o pain 10/10 this morning but notes this is only with movement or when he experiences spasm after taking deep breathes. Patient concerned about pain control. PRN [place] administered, patient reports this dropped pain to 4/10 if he's resting, still has breakthrough that hits 10/10. Patient O2 drops with coughing and increased pain. Noted to be 88-90% on room air, placed patient on 1L. Will continue to monitor.
--- NOTE | 2021-02-09 10:02 | PT-IP ANOTE ---
Pt supine in bed w/ nasal canula use, in room, refused working with therapy this am, stated I am having more back pain just breathing, haven't slept well, want to just rest, maybe tomorrow. I have been doing arm raise holds and using inspirometer self 700 with pain- 1200 less pain so doing what can. I am hoping to get a shower today and maybe will help feel better. LEGAL REFEREE educated patient his body is self repairing and back is responding to even breath movements to stabilize mobility and importance mobility, breath, UE/ LE ease slow movement for circulation and strength as tolerated. LEGAL REFEREE unable to see pt. See previous PT notes for mobility.
--- NOTE | 2021-02-09 11:19 | DI.RAD.S_ITS ---
PROCEDURE: XR CHEST 1V INDICATIONS: right hemothorax TECHNIQUE: One view of the chest was acquired. COMPARISON: [facility], CT, CT THORACIC SPINE WO CON, 02/07/2021, 19:24. [facility], CR, XR CHEST 1V, 02/08/2021, 7:03. FINDINGS: Surgical changes and devices: None. Lungs and pleura: Patchy bilateral atelectasis. Question minimal right pleural fluid. Mediastinum: Mediastinal contours appear normal. Heart size is normal. Bones and chest wall: No suspicious bony lesions. Numerous right-sided rib fractures are better seen on the CT. Overlying soft tissues appear unremarkable. IMPRESSION: Numerous known right rib fractures, better seen on CT. Patchy bibasilar atelectasis. Minimal right pleural effusion. Dictated by: Rangel Fay M.D. on 02/09/2021 at 11:52 Approved by: Rangel Fay M.D. on 02/09/2021 at 11:54
--- NOTE | 2021-02-09 11:24 | P.PN_ITS ---
Subjective Subjective Date Patient Seen: 02/09/21 Time Patient Seen: 11:24 Interval history: Discharge held due to pain control. Coughing and deep breaths are painful. Exam Vital Signs (past 8 hours): - 02/09/21 05:05 02/09/21 06:00 02/09/21 08:00 Temperature 97.9 F 98.7 F Pulse Rate 66 67 Respiratory Rate 18 17 Blood Pressure 109/76 118/72 Pulse Oximetry 93 93 96 02/09/21 09:09 02/09/21 09:13 02/09/21 09:19 Temperature Pulse Rate Respiratory Rate Blood Pressure Pulse Oximetry 96 96 93 Oxygen Delivery Method Nasal Cannula Oxygen Flow Rate 1 Narrative Exam Narrative: decreased BS right base Const General: cooperative Objective Labs Result Diagrams: 02/08/21 04:43 02/07/21 20:05 [facility] Medical History Healthy adult Social History household members: spouse Smoking Status: Former smoker Assessment & Plan Assessment & Plan narrative: Right sided rib fractures. Having pain control issues for good pulmonary toilet. PT recommended home health and walker. Plan: Lidocaine patches Robaxin gabapentin CXR Continue observation for over sedation laxitive. Time Spent With Patient Time with patient: 25 - 35 minutes Quality VTE Deep Vein Thrombosis/Pulmonary Embolism Present on Admission: No
[2021-02-09] MEDS: DOCUSATE 100 MG CAPSULE 200 MG PO ×2 (11:45→22:25)
[2021-02-09] MEDS: methocarbamoL 500 MG TABLET PO ×2 (11:46→19:23)
[2021-02-09] MEDS: GABAPENTIN 100 MG CAPSULE PO ×2 (11:46→22:25)
[2021-02-09] MEDS: OXYCODONE IR 10 MG TABLET PO ×4 (11:46→22:25)
[2021-02-09] MEDS: polyethylene glycoL 3350 17 GM POWD.PACK PO (11:46)
[2021-02-09] MEDS: FUROSEMIDE 20 MG/2 ML VIAL IV (11:52)
[2021-02-09] MEDS: LIDOCAINE PATCH 1 EACH ADH..PATCH 2 EACH TOP (11:52)
--- NOTE | 2021-02-09 14:40 | PT.IPTN ---
Physical Therapy Treatment Note M2 PT-IP Current Condition Start: 02/08/21 13:25 Freq: NEEDED Status: Active Protocol: Document 02/08/21 14:21 AW (Rec: 02/08/21 15:00 AW [id number]) Physical Therapy Current Condition Current Condition Evaluation Date 02/08/21 Treatment Diagnosis R rib fx 3-11, R arm pain, impaired mobility and gait Onset Date 02/07/21 Precautions Other Precautions - falls - no heavy lifting or straining x [address] Tadeo M3 PT-IP Subjective Start: 02/08/21 13:25 Freq: NEEDED Status: Active Protocol: Document 02/09/21 14:40 AW (Rec: 02/09/21 15:01 AW [id number]) Subjective Physical Therapy Visit Type Type Treatment Note Visit Start Time 14:20 Visit Stop Time 14:40 Total Visit Minutes 20 Notes Pt's spouse was present throughout Number of URINALYSIS TECHNICIAN Visits 0 Physical Therapy Visit Comments Patient Comments Pt is willing to mobilize with PT Patient Goals Improve pain management and return home Therapy Pain Assessment Pain When Pain Assessed During Mobility Pain Present Pain Present Allowed to Sleep Location Right Ribs Intensity 8 Scale Used Numeric (0 - 10) Pain Management Techniques Distraction,Re-positioning, Timing of Activity with Medications M4 PT-IP Mobility and Gait Start: 02/08/21 13:25 Freq: NEEDED Status: Active Protocol: Document 02/09/21 14:40 AW (Rec: 02/09/21 15:01 AW [id number]) PT-Bed Mobility Assessment Rolling Type of Rolling Log Rolling,Roll to Left Level of Assist Contact Guard Assistance Supine to Sit Supine to Sit Minimal Assistance,Moderate Assistance,1 Person Assistance ,Bedrails Scooting Scooting to Edge of Bed Contact Guard Assistance PT-Transfer Assessment Sit to and From Stand Sit to and from Stand Contact Guard Assistance,Use of Upper Extremities Equipment Transfer Assistive Device Gait Belt,Front Wheeled Walker Orthotic/Prosthetic Devices or Brace: No Transfers Transfer Destination Chair Transfer Technique ambulated with FWW Transfer Ability Level of Assist Contact Guard Assistance,Use of Upper Extremities Comments Mobility Comments Pt was in bed as PT arrived. SpO2 95% on 1L/min and 94% at rest after O2 removed. Pt rolled left and required min to mod assist for SL to sit. Educated pt to attend to his breathing as he sat EOB. SpO2 was stable. He stood CGA and used the FWW to ambulate in the halls a total of 120 feet. On return to the room, pt used the FWW pushed over the toilet for standing void which was dribbly. Pt's stated void was normal for pt and not related to respiratory distress. Pt walked to the chair with FWW and sat CGA. SpO2 on room air after activity was 94%. He was left in the chair with call light and tray table in reach. His spouse remained in the room. Continuous pulse ox monitoring was on. Reported to RN that pt was left on room air. Gait Assessment Gait Gait Assistance Required: Standby Assistance,Contact Guard Assist Distance (Feet) 120 Assistive Devices Assistive Device Gait Belt,Front Wheeled Walker Orthotic/Prosthetic Devices or Brace: No Gait Deviations General Gait Pattern Antalgic,Decreased Stride Length,Decreased Feet Clearance,Flexed Trunk Factors Limiting Gait Function Factors Limiting Gait Function Limited Range of Motion,Pain Comments Gait Comments CGA for gait initiation and then SBA as pt confidence increased while using FWW. PT-Balance Assessment Sitting Balance and Reactions Static Sitting Balance Ability Good Dynamic Sitting Balance Ability Fair Standing Balance and Reactions Static Standing Balance Ability Fair Dynamic Standing Balance Ability Fair Device Used FWW M5 PT-IP Objective Assessments Start: 02/08/21 13:25 Freq: NEEDED Status: Active Protocol: Document 02/08/21 14:21 AW (Rec: 02/08/21 15:00 AW [id number]) Orientation Orientation/Cognition Level of Alertness Alert Orientation Name,Day of Week,Place, Situation Language Function Ability No Deficits Noted Safety Awareness Understands Safety Issues Memory Description No Deficits Noted Gross Range of Motion Upper Extremity ROM Assessment Within Functional Limits Lower Extremity ROM Assessment Within Functional Limits Strength Upper Extremity Strength Assessment Bilaterally Impaired Shoulder 4-/5 secondary to pain Lower Extremity Strength Assessment Within Functional Limits Comments Strength Comments Generally 5/5 except R hip flexion 4+/5 Sensation Assessment Sensation Gross Sensation WNL Muscle Tone Muscle Tone WNL Yes Other Assessments Other Other Assessments See mobility comments for SpO2 monitoring during activity. M6 PT-IP Treatment Start: 02/08/21 13:25 Freq: NEEDED Status: Active Protocol: Document 02/09/21 14:40 AW (Rec: 02/09/21 15:01 AW [id number]) Physical Therapy Treatment Education Education Provided Precautions,Safety M7 PT-IP Assessment and Plan Start: 02/08/21 13:25 Freq: NEEDED Status: Active Protocol: Document 02/09/21 14:40 AW (Rec: 02/09/21 15:01 AW [id number]) PT Summary Assessment and Plan Potential Rehabilitation Potential Good Status of Condition at Evaluation Stable Summary Impairments Pain,ROM,Strength,Balance,Bed Mobility,Transfers,Gait Progress Towards Goals Progressing Toward Goals Assessment Summary Pt reports improved pain control this PM and is able to progress his gait to 120 feet with FWW SBA. He has all necessary equipment at home and his can assist as needed. He will be safe to discharge home once medically cleared but would benefit from home health PT and OT to progress his independent mobility and self-care. Goals Bed Mobility Goal Standby Assistance Transfer Goal Independent,Front Wheeled Walker Gait Goal Independent,Front Wheel Walker Gait Distance 200 Other Goals - improve transfers and gait to IND with LRAD or no AD Days to Meet Goals 5 Frequency of Treatment Frequency Of Treatment Once a Day Treatment Plan Physical Therapy Treatment Plan Bed Mobility Training,Transfer Training,Gait Training, Therapeutic Exercise,Balance Retraining,Discharge Planning, Hot or Cold Pack Other Recommendations and Next Treatment breathing mechanics, mobility Focus as tolerated Precautions Other Precautions - falls - no heavy lifting or straining x [address] Tadeo Recommendations To Nursing Amount of Assist Needed 1 Person Assist Discharge Recommendations PT Discharge Recommendations Home with Assistance,Home Health Transportation Needs at Discharge Private Vehicle
[2021-02-09] MEDS: BENZONATATE 100 MG CAPSULE PO (19:16)
[2021-02-10] VITALS (7 sets, daily range): BP systolic 124–146; BP diastolic 76–83; PULSE 71–80; RESP 16–18; TEMP 36.8–37.2; O2SAT 92–94
[2021-02-10] MEDS: OXYCODONE IR 10 MG TABLET PO ×3 (01:30→13:21)
[2021-02-10] MEDS: methocarbamoL 500 MG TABLET PO (04:32)
[2021-02-10] MEDS: DOCUSATE 100 MG CAPSULE 200 MG PO (09:44)
[2021-02-10] MEDS: ACETAMINOPHEN 325 MG TABLET 650 MG PO (09:44)
[2021-02-10] MEDS: GABAPENTIN 100 MG CAPSULE PO ×2 (09:45→13:22)
[2021-02-10] MEDS: ENOXAPARIN 40 MG/0.4 ML SYRINGE SUBCUT (09:45)
[2021-02-10] MEDS: BENZONATATE 100 MG CAPSULE PO ×2 (09:45→13:22)
[2021-02-10] MEDS: SODIUM CHLORIDE 0.9% FLUSH 10 ML IV (09:46)
[2021-02-10] MEDS: polyethylene glycoL 3350 17 GM POWD.PACK PO (09:46)
--- NOTE | 2021-02-10 11:12 | PM.DS.1 ---
History of Present Illness History of Present Illness Date Patient Seen: 02/10/21 Chief complaint: Fell Off Deck,Rt Ribs,Rt Arm,Head Injury Narrative: fall from deck. Right trace hemothorax on CT Right rib fractures (3-11) [facility] Right arm laceration Was working on his deck prying a board loose with crowbar. Fell backwards when board gave way. Doesn't recall all details of event. C/O pain with deep breath and right sided chest wall pain. Pain in right arm. ED workup shows right ribs 3-11 fracture with trace hemothorax. No pnuemothorax. CXR today is stable as is Hct. No signs of concussive symptoms. Head, Neck and Thorax with no acute injury. Discharge Providers Provider Date of admission: 02/07/21 22:45 Discharge Date: 02/10/21 Primary care physician: Buddy Reid MD Consults: 02/08/21 12:34 Consult to Physical Therapy Evaluate & Treat Comment: wants to know if walker is useful Physician Instructions: Evaluate and Treat 02/08/21 14:30 Consult to Respiratory Therapy Evaluate & Treat Comment: Physician Instructions: Evaluate and treat 02/08/21 14:54 Consult to Home Health Routine Comment: [facility] has accepted the referral. Reason For Exam: RN/PT/OT: per PT recommendation Discharge provider: Dedra Tadeo MD Summary Hospital Course Discharge Diagnosis: right rib fracture, small hemothorax, pain. Hospital Course: No ongoing bleeding. Pain from rib fractures delayed his discharge. Seen by PT and RT with recommendations of VNS. Status at Discharge Cognitive/behavioral status at discharge: oriented Functional status at discharge: uses cane/walker Overall status at discharge: patient is progressing back to baseline Time Spent with Patient Time spent: Greater than 30 minutes Exam Vital Signs (past 8 hours): - 02/10/21 04:30 02/10/21 05:00 02/10/21 08:00 Temperature 98.9 F 98.9 F Pulse Rate 76 75 Respiratory Rate 18 18 Blood Pressure 146/77 H 129/83 Pulse Oximetry 93 93 92 Oxygen Delivery Method Room Air Oxygen Flow Rate 0 Const General: cooperative and comfortable Nutritional Appearance: average body habitus Orientation: alert and oriented x3 HENMT Head: normocephalic and atraumatic Eyes Sclera: sclerae normal Neck Neck: trachea midline Resp Effort & Inspection: normal respiratory effort and able to speak in complete sentences Cardio Rate: regular rate Rhythm: regular rhythm Skin General: no rashes or lesions noted Neuro General: patient alert and patient oriented x3 Cognition: normal cognition Psych Appearance: grossly normal Attitude: cooperative Objective Labs Result Diagrams: 02/08/21 04:43 02/07/21 20:05 [facility] Medical History Healthy adult Social History household members: spouse Smoking Status: Former smoker Discharge Assessment & Plan Assessment and Plan Assessment: Fall from deck. Right rib fractures 3-11, right arm laceration. Small right hemothorax. Plan of Treatment: Home with ICS, VNS and PT worked with him on using walker. Follow up PCP as needed. No straining or heavy lifting for 2 weeks. Discharge Plan Discharge Plan Patient Disposition: Home Provider Discharge Comment: no heavy lifting or straining Discharge orders & Medications Prescriptions: New acetaminophen 325 mg Tablet 650 mg PO Q6HR PRN (Reason: Fever/Mild Pain (1-3)) Qty: 30 RF: 0 hydrocodone-acetaminophen [Vicodin HP] 10-300 mg tablet 1 tab PO Q8H PRN (Reason: pain) Qty: 30 RF: 0 methocarbamol 500 mg Tablet 500 mg PO TID PRN (Reason: Muscle Spasm) Qty: 30 RF: 0 polyethylene glycol 3350 17 gram Powder In Packet 17 gm PO DAILY Qty: 1 RF: 0 benzonatate 100 mg Capsule 100 mg PO TID PRN (Reason: Cough) Qty: 30 RF: 0 docusate sodium [DOK] 100 mg Capsule 200 mg PO BID Qty: 40 RF: 0 gabapentin 100 mg Capsule 100 mg PO TID Qty: 90 RF: 0 oxycodone 10 mg Tablet 10 mg PO Q3HR PRN (Reason: Pain, Severe (7-10)) Qty: 40 RF: 0 lidocaine 5 % adhesive patch,medicated 2 patch topical DAILY Qty: 15 RF: 0 Continued simvastatin [Zocor] 20 MG tablet See Rx Instructions .ROUTE .COMPLEX Qty: 0 RF: 0 Follow up/Referrals: Buddy Reid MD [Primary Care Provider] - Diet/Activity/Treatments Diet: Diet as Tolerated Activity: no heavy lifting or straining for 4-6 weeks, ice or heat is ok (which ever one make you comfortable). Visit Report/Discharge Packet Instructions: DI for Prescription Opioid Use Discharge Data Primary Care Provider: Buddy Reid VTE Deep Vein Thrombosis/Pulmonary Embolism Present on Admission: No
--- NOTE | 2021-02-10 11:53 | CM.DPC ---
DCP Cont: Patient has discharge orders for today. HERIBERTO Conroy nurse from [facility] called and was inquiring upon discharge plan, or if home health would be ordered. Let her know that [facility] had already been ordered. Marycarmen indicated that [facility] is not in their network, but [facility] is. Let her know that this case manage will speak to patient to ensure that [facility] will be ok with them. Spoke to patient and , Kristine. Let them know that [facility] is not in the [facility] network, but [facility] is. Confirmed this with Paola at [facility] that they do not accept this [employer] plan. Patient is ok with using [facility]. Went ahead and confirmed with Navya at [facility] that they do accept [employer]. They are approximately a week out, but if openings come up sooner, will attempt to get a sooner visit. They will update patient. Printed out face sheet, face to face, P.t. note, DC Summary and H&P, and faxed it over to [facility]. Navya at [facility] is updated on referral. Face to face indicates nursing, P.T, and O.t. Patient's indicated that they have some supplies at home, such as a shower bench, but will benefit with therapy as far as other equipment that could be needed. P: Patient is being discharged home today with [facility]. All information has been faxed. Sharmila Junior RN/Compressor House Operator
--- NOTE | 2021-02-10 12:13 | PT.IPTN ---
Physical Therapy Treatment Note M2 PT-IP Current Condition Start: 02/08/21 13:25 Freq: NEEDED Status: Active Protocol: Document 02/08/21 14:21 AW (Rec: 02/08/21 15:00 AW [id number]) Physical Therapy Current Condition Current Condition Evaluation Date 02/08/21 Treatment Diagnosis R rib fx 3-11, R arm pain, impaired mobility and gait Onset Date 02/07/21 Precautions Other Precautions - falls - no heavy lifting or straining x [address] Tadeo M3 PT-IP Subjective Start: 02/08/21 13:25 Freq: NEEDED Status: Active Protocol: Document 02/10/21 12:13 AW (Rec: 02/10/21 12:21 AW [id number]) Subjective Physical Therapy Visit Type Type Treatment Note Visit Start Time 11:56 Visit Stop Time 12:13 Total Visit Minutes 17 Notes Pt's spouse was present throughout Physical Therapy Visit Comments Patient Comments Pt is willing to mobilize with PT Therapy Pain Assessment Pain When Pain Assessed During Mobility Pain Present Pain Present Pain Reported Location Right Ribs Intensity 4 Scale Used Numeric (0 - 10) Pain Management Techniques Distraction,Re-positioning, Timing of Activity with Medications M4 PT-IP Mobility and Gait Start: 02/08/21 13:25 Freq: NEEDED Status: Active Protocol: Document 02/10/21 12:13 AW (Rec: 02/10/21 12:21 AW [id number]) PT-Bed Mobility Assessment Rolling Type of Rolling Log Rolling,Roll to Left Level of Assist Standby Assistance Supine to Sit Supine to Sit Minimal Assistance,Moderate Assistance,1 Person Assistance Scooting Scooting to Edge of Bed Standby Assistance PT-Transfer Assessment Sit to and From Stand Sit to and from Stand Standby Assistance,Contact Guard Assistance,Use of Upper Extremities Equipment Transfer Assistive Device Gait Belt,Front Wheeled Walker Orthotic/Prosthetic Devices or Brace: No Transfers Transfer Destination Chair Transfer Technique ambulated with FWW Transfer Ability Level of Assist Contact Guard Assistance,Use of Upper Extremities Comments Mobility Comments Pt was resting in bed as PT arrived. SpO2 96% on room air. He log rolled to his left SBA and needed mod/min assist to right his trunk. Sit to stand was slow but SBA. Pt ambulated with FWW 160 feet SBA. On return to the room, he transferred to the chair [facility] and was left seated with call light and tray table in reach. Gait Assessment Gait Gait Assistance Required: Standby Assistance Distance (Feet) 160 Assistive Devices Assistive Device Gait Belt,Front Wheeled Walker Orthotic/Prosthetic Devices or Brace: No Gait Deviations General Gait Pattern Antalgic,Decreased Stride Length,Decreased Feet Clearance,Flexed Trunk Factors Limiting Gait Function Factors Limiting Gait Function Limited Range of Motion,Pain Stair Climbing Assessment Comments Stair Climbing Comments Pt's home is w/c accessible. He has a level entrance, no stairs. PT-Balance Assessment Sitting Balance and Reactions Static Sitting Balance Ability Good Dynamic Sitting Balance Ability Fair Standing Balance and Reactions Static Standing Balance Ability Good Dynamic Standing Balance Ability Fair Device Used FWW M5 PT-IP Objective Assessments Start: 02/08/21 13:25 Freq: NEEDED Status: Active Protocol: Document 02/08/21 14:21 AW (Rec: 02/08/21 15:00 AW [id number]) Orientation Orientation/Cognition Level of Alertness Alert Orientation Name,Day of Week,Place, Situation Language Function Ability No Deficits Noted Safety Awareness Understands Safety Issues Memory Description No Deficits Noted Gross Range of Motion Upper Extremity ROM Assessment Within Functional Limits Lower Extremity ROM Assessment Within Functional Limits Strength Upper Extremity Strength Assessment Bilaterally Impaired Shoulder 4-/5 secondary to pain Lower Extremity Strength Assessment Within Functional Limits Comments Strength Comments Generally 5/5 except R hip flexion 4+/5 Sensation Assessment Sensation Gross Sensation WNL Muscle Tone Muscle Tone WNL Yes Other Assessments Other Other Assessments See mobility comments for SpO2 monitoring during activity. M6 PT-IP Treatment Start: 02/08/21 13:25 Freq: NEEDED Status: Active Protocol: Document 02/10/21 12:13 AW (Rec: 02/10/21 12:21 AW [id number]) Physical Therapy Treatment Education Education Provided Precautions,Safety M7 PT-IP Assessment and Plan Start: 02/08/21 13:25 Freq: NEEDED Status: Active Protocol: Document 02/10/21 12:13 AW (Rec: 02/10/21 12:21 AW [id number]) PT Summary Assessment and Plan Summary Impairments Pain,ROM,Strength,Balance,Bed Mobility,Transfers,Gait Progress Towards Goals Progressing Toward Goals Assessment Summary Pt continues to report improved pain management. Transitions remain challenging and pt required up to mod assist for bed mobility but he was otherwise SBA/CGA for ambulation with FWW. Pt has all needed equipment and assist at home. He will be safe to discharge home once medically cleared but would benefit from home health PT and OT to progress his independent mobility and self- care. Goals Bed Mobility Goal Standby Assistance Transfer Goal Independent,Front Wheeled Walker Gait Goal Independent,Front Wheel Walker Gait Distance 200 Other Goals - improve transfers and gait to IND with LRAD or no AD Days to Meet Goals 5 Frequency of Treatment Frequency Of Treatment Once a Day Treatment Plan Physical Therapy Treatment Plan Bed Mobility Training,Transfer Training,Gait Training, Therapeutic Exercise,Balance Retraining,Discharge Planning, Hot or Cold Pack Other Recommendations and Next Treatment breathing mechanics, mobility Focus as tolerated Precautions Other Precautions - falls - no heavy lifting or straining x [address] Tadeo Recommendations To Nursing Amount of Assist Needed 1 Person Assist Discharge Recommendations PT Discharge Recommendations Home with Assistance,Home Health Transportation Needs at Discharge Private Vehicle
--- NOTE | 2021-02-10 14:51 | PC.NURSE ---
Discharge: Pt and spouse feel ready to d/c home. Seen by MD and received d/c instructions, Seen by PT and received their final instructions. Given discharge packet and same reviewed. Reviewed meds as pt has many new meds. Seen by pharmacist and received med teaching. Questions answered. Pt d/c home via auto with spouse.
== END 2021-02-10 14:10 | disposition home or self-care (01) | DRG 200 ==
LOC: ED 18:59 → AC 22:45
PROVIDERS: Admitting Provider Surgery; Emergency Provider Emergency Medicine; Family Provider Family Medicine; PCP Family Medicine; Referring Provider Emergency Medicine; Visit Provider Surgery
DX: S27.1XXA Traumatic hemothorax, initial encounter (principal); S22.41XA Multiple fractures of ribs, right side, initial encounter for closed fracture; S41.111A Laceration without foreign body of right upper arm, initial encounter; S00.83XA Contusion of other part of head, initial encounter; W17.89XA Other fall from one level to another, initial encounter; Y92.008 Other place in unspecified non-institutional (private) residence as the place of occurrence of the external cause; Z87.891 Personal history of nicotine dependence; Z20.822 Contact with and (suspected) exposure to COVID-19
CPT/HCPCS: 36415; 36592; 70450; 71045; 72125; 72128; 72131; 80053; 80320; 83690; 85025; 85610; 85730; 86850; 86900; 86901; 87635; 93005; 94618; 94760; 97116; 97161; 97530; 99231; 99232; 99238; 99285; C9803; J1650; J1940; J2270; J2405

== ENCOUNTER 2023-07-22 06:43 | Day surgery (SDC) | payer OTHER, SELFPAY ==
[2023-07-22 07:16] VITALS: BP 126/79; PULSE 68; RESP 18; TEMP 36.3; O2SAT 94
[2023-07-22] MEDS: LACTATED RINGERS 1,000 ML 42 ML IV (07:21)
--- NOTE | 2023-07-22 07:32 | P.HP_ITS ---
History of Present Illness History of Present Illness Date Patient Seen: 07/22/23 Time Patient Seen: 07:33 Chief complaint: Screening Colonoscopy Narrative: Last colonoscopy was 7 years ago, believes he had a polyp then, no family history or symptoms of concern. REPLACED BY [facility] Medical History Healthy adult Surgical History Hx of appendectomy Social History household members: spouse Smoking Status: Former smoker alcohol intake: current Meds Home Medications and Allergies Home Medications Medication Instructions Recorded Confirmed Type simvastatin 20 mg tablet (Zocor) See Rx Instructions .Route 02/20/17 07/22/23 History .COMPLEX ##0 acetaminophen 325 mg tablet 650 mg (2 x 325 mg) PO Q6HR PRN 02/08/21 07/22/23 Rx Fever/Mild Pain (1-3) #30 tabs hydrocodone 10 mg-acetaminophen 1 tab PO Q8H PRN pain #30 tabs 02/08/21 02/08/21 Rx 300 mg tablet (Vicodin HP) Allergies Allergy/AdvReac Type Severity Reaction Status Date / Time iodine [IODINE] Allergy Intermediate Vomiting Verified 07/22/23 07:07 Review of Systems Review of Systems ROS: Yes All systems reviewed with the patient and are negative except as otherwise documented Exam Vital Signs (past 8 hours): - 07/22/23 07:16 Temperature 97.4 F L Pulse Rate 68 Respiratory Rate 18 Blood Pressure 126/79 Pulse Oximetry 94 Oxygen Delivery Method Room Air Oxygen Delivery Method Room Air Const General: cooperative, healthy appearing and comfortable [facility] Head: normal to inspection, normocephalic and atraumatic Ears: hearing grossly normal bilaterally Eyes General: appearance normal, both eyes and all related structures Sclera: sclerae normal Neck Neck: trachea midline Resp Effort & Inspection: normal respiratory effort and able to speak in complete sentences Cardio Rate: regular rate Rhythm: regular rhythm GI Palpation: soft Skin General: elasticity normal and turgor normal Neuro General: patient alert, patient awake and patient oriented x3 Cognition: normal cognition Extrem General: full ROM Psych Appearance: grossly normal Mental Status: mental status grossly normal Attitude: cooperative Judgment: judgment good Assessment & Plan Assessment & Plan narrative: h/o colon polyp colonoscopy with anesthesia Time Spent With Patient Time with patient: less than 30 minutes
--- NOTE | 2023-07-22 07:59 | PM.OP.COLON ---
Operative Date/Time/Diagnoses Date of procedure: 07/22/23 Time of procedure: 08:00 Pre-op diagnosis: History of colon polyps Post-op diagnosis: same Procedure & Clinicians Study performed: Colonoscopy with anesthesia Same procedure as scheduled: Yes Indications: History of colon polyps Surgeon: Dedra Tadeo Procedure Notes Procedure in detail: Preop diagnosis: History of colon polyps Postop diagnosis: Same Operative procedure: Colonoscopy with anesthesia Surgeon: Marbella Tadeo MD Findings: Normal colonoscopy. No diverticulosis, no polyps. Procedure: Patient placed in lateral position. Rectal exam performed showing normal tone no masses. Colonoscope inserted into the rectum and advanced to ileocecal valve with minimal difficulty. Insufflation and extraction scope and the above findings. Impression: No polyps, no diverticulosis. Plan repeat colonoscopy in 10 years unless otherwise indicated by change in clinical condition Specimen(s): none sent Complications: none Post-procedure Recommendations: Colonoscopy in 10 years Follow up: as needed Disposition: PACU
[2023-07-22 08:05] VITALS: BP 107/73; PULSE 80; RESP 16; TEMP 36.8; O2SAT 98
[2023-07-22 08:08] VITALS: BP 113/67; PULSE 80; RESP 16; TEMP 36.2; O2SAT 98
[2023-07-22 08:10] VITALS: BP 109/77; PULSE 65; RESP 16; TEMP 36.2; O2SAT 98
[2023-07-22 08:21] VITALS: BP 125/75; PULSE 68; RESP 16; TEMP 36.8; O2SAT 98
== END 2023-07-22 08:30 | disposition home or self-care (01) ==
PROVIDERS: Family Provider Family Medicine; PCP Family Medicine; Referring Provider Surgery; Visit Provider Surgery
PROC: 0DJD8ZZ Inspection of Lower Intestinal Tract, Via Natural or Artificial Opening Endoscopic (ICD-10-PCS; CPT 45378; principal; 2023-07-22 07:45)
DX: Z12.11 Encounter for screening for malignant neoplasm of colon (principal); Z86.010 Personal history of colon polyps
CPT/HCPCS: G0105; J2704

== ENCOUNTER → 2023-12-12 16:14 | Outpatient (ROUT) | payer OTHER, SELFPAY | PROVIDERS: Family Provider Family Medicine; PCP Family Medicine; Visit Provider Dermatology | DX: L02.212 Cutaneous abscess of back [any part, except buttock and flank] (principal) | CPT/HCPCS: 87070; 87075; 87077; 87186; 87205 ==

== ENCOUNTER → 2023-12-14 09:52 | Outpatient (CLI) | payer OTHER, SELFPAY ==
--- NOTE | 2023-12-14 09:55 | DI.RAD.S_ITS ---
PROCEDURE: XR CERVICAL SPINE 4V OR 5V INDICATIONS: NECK PAIN TECHNIQUE: 5 views of the cervical spine acquired. COMPARISON: None. FINDINGS: Bones: No fractures or dislocations to the C7-T1 level. Degenerative endplate changes, loss of disc height and bilateral uncovertebral hypertrophic changes are noted throughout cervical spine. 4 mm anterolisthesis of C5 on C6 and 2 mm anterolisthesis of C4 on C5 is seen. Oblique images demonstrate right worse than left bilateral bony foraminal stenosis at C3-4 through C5-6 levels. Soft tissues: No prevertebral soft tissue swelling. IMPRESSION: 1. No cervical spine fracture or dislocation. 2. Grade 1 anterolisthesis of C4 on C5 and C5 on C6. Degenerative disc disease throughout cervical spine. Right worse than left bilateral bony foraminal stenosis at C3-4 through C5-6 levels. Dictated by: Manuel Claire M.D. on 12/14/2023 at 13:50 Approved by: Manuel Claire M.D. on 12/14/2023 at 13:52
== END ==
LOC: RAD 09:53
PROVIDERS: Family Provider Family Medicine; PCP Family Medicine; Referring Provider Family Medicine; Visit Provider Family Medicine
DX: M50.30 Other cervical disc degeneration, unspecified cervical region (principal); M48.02 Spinal stenosis, cervical region; M43.12 Spondylolisthesis, cervical region
CPT/HCPCS: 72050

== ENCOUNTER → 2024-05-30 07:40 | Outpatient (CLI) | payer OTHER, SELFPAY ==
--- NOTE | 2024-05-30 07:41 | DI.NM.S_ITS ---
PROCEDURE: NM EXERCISE TREADMILL NON NUC COMPARISON: None INDICATIONS: PAROX AFIB FINDINGS: Rest ECG sinus rhythm 64 bpm. Ranjit protocol 12:00, maximum heart rate 160 bpm (107% peak predicted), peak blood pressure 181/71, 12.8 METS, GERDA -68%. Exercise ECG sinus tachycardia, no ST segment changes or arrhythmia. The patient did not report exercise-induced chest discomfort. IMPRESSION: Low risk study. No evidence of exercise-induced ischemia or arrhythmia. Normal hemodynamic response. Excellent exercise capacity. Dictated by: Laurel Ngo D.O. on 05/30/2024 at 16:24 Approved by: Laurel Ngo D.O. on 05/30/2024 at 16:26
--- NOTE | 2024-05-30 09:30 | DI.ECHO.S_ITS ---
[facility] +---------+ [facility] : : [id number] : : [place] : : [id number] : : Phone: [phone] Echocardiogram Report + + :Name: ABHISHEK JACINTO Study Date: 05/30/2024 Height: 70 in : :Hospital ReadingLocation: Weight: 208 lb : : Gender: Male BSA: 2.1 m2 : :: 1950 Age: 73 yrs BP: 108/64 mmHg: :Reason For Study: ATRIAL FIBRILLATION : :Ordering Physician: DAWIT, : :RANDALL Performed By: Tasha Menard : :Referring: RANDALL PASTOR : + + Interpretation Summary The ejection fraction is estimated to be 50-55%. Diastolic parameters suggest probable normal left ventricular diastolic function and normal filling pressures. The right ventricle is normal in size and function. There is mild mitral regurgitation. Pulmonary artery pressures cannot be estimated because of the lack of a measurable TR jet velocity but the IVC suggests a CVP of around 3 mmHg. Procedure: A two-dimensional transthoracic echocardiogram with color flow and Doppler was performed. The study quality was technically adequate. There is no prior echocardiogram noted for this patient. The patient was in sinus rhythm with heart rates between 68-80 bpm during the exam. Left Ventricle: The left ventricle is normal in size and wall thickness. The ejection fraction is estimated to be 50-55%. Diastolic parameters suggest probable normal left ventricular diastolic function and normal filling pressures. Right Ventricle: The right ventricle is normal in size and function. Atria: The left atrial size is normal. Right atrial size is normal. The interatrial septum is thin and hypermobile. There is no Doppler evidence for an interatrial shunt. Mitral Valve: The mitral valve is normal. There is mild mitral regurgitation. Aortic Valve: The aortic valve is trileaflet. The aortic valve opens well. There is no aortic valve stenosis. There is trace aortic regurgitation. Tricuspid Valve: The tricuspid valve is normal in structure and function. There is trace tricuspid regurgitation. Pulmonary artery pressures cannot be estimated because of the lack of a measurable TR jet velocity but the IVC suggests a CVP of around 3 mmHg. Pulmonic Valve: The pulmonic valve leaflets are thin and pliable; valve motion is normal. There is no pulmonic valvular regurgitation. Great Vessels: The aortic root is normal size. The dimensions of the ascending aorta are normal. The IVC is of normal diameter and collapses greater than 50% with a sniff. This suggests a low right atrial pressure of 3 mm Hg. Pericardium/ Pleura There is no pericardial effusion. There is no pleural effusion. MMode/2D Measurements & Calculations LVIDd: 4.1 cm LVOT diam: 2.1 cm LVIDs: 2.9 cm Ao root diam: 3.2 cm FS: 28.2 % asc Aorta Diam: 3.6 cm EPSS: 0.66 cm Ao Arch Diam (Prox Trans): 3.1 cm IVSd: 0.91 cm LVPWd: 0.97 cm LV rothman. diameter/BSA (cm/m^2): 1.9 LV sys. diameter/BSA (cm/m^2): 1.4 LA A2 area: 17.3 cm2 RA long axis: 5.1 cm LA A4 area: 16.4 cm2 RA area: 16.2 cm2 LA length (vol): 5.0 cm RA vol: 44.0 ml LA vol: 48.4 ml RA : 20.7 ml/m2 LA vol index: 22.8 ml/m2 IVC diam: 1.5 cm RVD1 (basal): 3.4 cm RVD2 (mid): 3.1 cm TAPSE: 1.7 cm Doppler Measurements & Calculations Ao V2 max: 138.4 cm/sec LVOT Max Josué: 95.0 cm/sec Ao V2 mean: 95.8 cm/sec LV V1 max P.6 mmHg Ao max P.7 mmHg LV V1 VTI: 19.6 cm Ao mean P.1 mmHg ABRIL(I,D): 2.7 cm2 Ao V2 VTI: 25.9 cm ABRIL(V,D): 2.4 cm2 sev ratio: 0.76 ABRIL indexed to BSA (cm^2/m^2): 1.2 MV E max josué: 45.5 cm/sec TR max josué: 224.7 cm/sec MV A max josué: 69.8 cm/sec TR max P.2 mmHg MV E/A: 0.65 PA V2 max: 83.2 cm/sec Med Peak E' Josué: 6.6 cm/sec PA V2 mean: 58.9 cm/sec E/E' med: 6.9 PA mean P.5 mmHg Lat Peak E' Josué: 10.5 cm/sec PA pr(Accel): 37.9 mmHg E/E' lat: 4.4 E/e' average: 5.6 MV dec time: 0.29 sec [facility]): 68.7 ml Reading Physician:01:27 PM
== END ==
PROVIDERS: Family Provider Family Medicine; PCP Family Medicine; Referring Provider Family Medicine; Visit Provider Family Medicine
DX: I34.0 Nonrheumatic mitral (valve) insufficiency (principal); I48.0 Paroxysmal atrial fibrillation
CPT/HCPCS: 93017; 93306

== ENCOUNTER → 2025-03-12 09:55 | Outpatient (CLI) | payer MEDICARE, SELFPAY ==
--- NOTE | 2025-03-12 | DI.RAD.S_ITS ---
PROCEDURE: ORTHO-XR KNEE WB BILAT INDICATIONS: ACUTE PAIN IN LT KNEE TECHNIQUE: Single AP view of both knees was acquired COMPARISON: None. FINDINGS: Bones: There are no osseous abnormalities. Joints: Moderate bilateral tibial femoral degeneration noted with chondrocalcinosis in both menisci. Soft tissues: Normal IMPRESSION: Moderate bilateral tibial femoral degeneration with chondrocalcinosis of menisci. Dictated by: Coleman Corcoran M.D. on 03/13/2025 at 11:31 Approved by: Coleman Corcoran M.D. on 03/13/2025 at 11:31
--- NOTE | 2025-03-12 | DI.RAD.S_ITS ---
PROCEDURE: XR KNEE LT 1TO2V INDICATIONS: ACUTE PAIN IN LT KNEE TECHNIQUE: Two views of the left knee were acquired. COMPARISON: Merged With [facility], CR, XR KNEE LT 3V, 05/14/2020, 16:52. FINDINGS: Bones: There are no osseous abnormalities. Joints: Severe patellofemoral degeneration and at least mild tibiofemoral degeneration noted. Exam is limited without the use of an AP view. Chondrocalcinosis present menisci. Small effusion. Soft tissues: Normal IMPRESSION: Severe patellofemoral and at least mild tibiofemoral degeneration. Limited exam please see above. Small effusion chondrocalcinosis of menisci Dictated by: Coleman Corcoran M.D. on 03/13/2025 at 11:29 Approved by: Coleman Corcoran M.D. on 03/13/2025 at 11:30
== END ==
PROVIDERS: Family Provider Family Medicine; PCP Family Medicine; Referring Provider Family Medicine; Visit Provider Family Medicine
DX: M17.0 Bilateral primary osteoarthritis of knee (principal); M11.262 Other chondrocalcinosis, left knee; M11.261 Other chondrocalcinosis, right knee; M25.562 Pain in left knee; M25.462 Effusion, left knee
CPT/HCPCS: 73560; 73564

== ENCOUNTER → 2025-03-19 07:42 | Outpatient (CLI) | payer MEDICARE, SELFPAY ==
--- NOTE | 2025-03-19 07:42 | DI.US.S_ITS ---
PROCEDURE: US ABD AORTA ANEURYSM SCREEN INDICATIONS: SCREENING TECHNIQUE: Real-time scanning was performed of the aorta and proximal common iliac arteries, with image documentation. COMPARISON: [facility], CT, CT LUMBAR SPINE WO CON, 02/07/2021, 19:24. FINDINGS: Aorta: Abdominal aorta is 2.8 cm proximally, 2.1 cm in the mid aorta, and 1.9 cm in the distal aorta. Iliacs: Proximal common iliac arteries are normal in caliber. IMPRESSION: Ectasia of the proximal abdominal aorta, recommend follow-up ultrasound in 5 years. Dictated by: Jonah Littlejohn M.D. on 03/19/2025 at 12:59 Approved by: Jonah Littlejohn M.D. on 03/19/2025 at 13:01
== END ==
LOC: US 07:42
PROVIDERS: Family Provider Family Medicine; PCP Family Medicine; Referring Provider Family Medicine; Visit Provider Family Medicine
DX: Z13.6 Encounter for screening for cardiovascular disorders (principal); I77.811 Abdominal aortic ectasia
CPT/HCPCS: 76706